=== PATIENT | male | born 1975 | race African-American/Black ===

== ENCOUNTER 2019-07-27 06:56 | Emergency (ER) | payer OTHER ==
[~2019-07-27] VITALS: Ht 177.8 cm; Wt 93.0 kg
[2019-07-27 07:16] LABS: BASOPHILS % (AUTO) 0.4 % (0.0-2.0); EOSINOPHILS # (AUTO) 0.1 K/uL (0.0-0.7); HEMATOCRIT 41.1 % (36.7-47.1); HEMOGLOBIN 13.7 g/dL (12.5-16.3); LYMPHOCYTES # (AUTO) 1.3 K/uL (20.0-40.0); LYMPHOCYTES % (AUTO) 15.5 % (20.5-51.5); MEAN CORPUSCULAR HEMOGLOBIN 30.8 uug (23.8-33.4); MEAN CORPUSCULAR HGB CONC 33 g/dL (32.5-36.3); MEAN CORPUSCULAR VOLUME 92.6 fL (73.0-96.2); MONOCYTES # (AUTO) 0.4 K/uL (2.0-10.0); MONOCYTES % (AUTO) 5.1 % (0.0-11.0); NEUTROPHILS # (AUTO) 6.5 K/uL (1.8-8.9); PLATELET COUNT (AUTO) 142 K/uL (152-348); RED BLOOD CELL COUNT(AUTO) 4.44 MIL/uL (4.06-5.63); WHITE BLOOD COUNT (AUTO) 8.3 K/uL (3.6-10.2)
--- NOTE | 2019-07-27 07:20 | NUR ---
Patient transported to CT in stable condition.
[2019-07-27 07:25] LABS: CREATININE 1.5 mg/dL (0.6-1.3); POTASSIUM 3.9 mmol/L (3.5-5.1)
[2019-07-27 07:30] LABS: BILIRUBIN,DIRECT 0.1 mg/dL (0.0-0.2); BILIRUBIN,TOTAL 0.2 mg/dL (0.2-1.0); TOTAL PROTEIN, SERUM 7.2 g/dL (6.4-8.2)
[2019-07-27] MEDS ORDERED: ASPIRIN 325 MG TABLET ONE (07:55)
[2019-07-27] MEDS ORDERED: ASPIRIN 325 MG TABLET PO ONE (08:00)
--- NOTE | 2019-07-27 08:22 | NUR ---
Dr. Rodriguez from [facility] on the line with [facility] discussing patients case.
--- NOTE | 2019-07-27 10:08 | NUR ---
[facility] here to transport patient to [facility] Patient Tranfers to outside Facility Physician:Dr. Barrientos Location: [facility]
[2019-07-27 10:34] LABS: ETHANOL < 3 MG/DL (0-0)
== END 2019-07-27 10:11 | disposition short-term general hospital (02) ==
LOC: ER 07:00
DX: I21.4 Non-ST elevation (NSTEMI) myocardial infarction (principal); R55 Syncope and collapse; Z59.0 Homelessness
CPT/HCPCS: 36415; 70450; 71045; 80048; 80076; 84484; 85025; 93005; 99285; G0480; 70030-TC; A4663